=== PATIENT | male | born 1980 | race African-American/Black ===

== ENCOUNTER 2018-07-12 07:21 | Emergency (ER) | payer OTHER ==
[~2018-07-12] VITALS: Ht 188 cm; Wt 103.2 kg
[2018-07-12] MEDS ORDERED: LISI40TA PO (07:27)
[2018-07-12] MEDS: IPRATROPIUM 0.5MG/ALBUTEROL 2.5MG INH SOL UD 3ML (DUONEB)(J7620) NEB ONE (08:05)
[2018-07-12 08:23] LABS: INFLUENZA A AMPLIFICATION NEGATIVE (NEGATIVE); INFLUENZA B AMPLIFICATION NEGATIVE (NEGATIVE)
[2018-07-12] MEDS ORDERED: PROAAER10 INH (08:29)
[2018-07-12] MEDS ORDERED: ALL10TAB2 PO (08:29)
[2018-07-12] MEDS ORDERED: MAGICMW SSP (08:29)
[2018-07-12 08:36] VITALS: BP 130/69
--- NOTE | 2018-07-12 10:40 | REP ---
PA and lateral chest: There are no comparisons. The lung virk are clear. The cardiac size is normal. The kia, mediastinum, and skeletal structures are unremarkable. Impression: Negative PA and lateral chest. Electronically Signed by Zeus Stone MD 07/12/2018 10:31 A
== END 2018-07-12 08:38 | disposition home or self-care (01) ==
LOC: M ED 07:21
DX: J06.9 Acute upper respiratory infection, unspecified (principal); I10 Essential (primary) hypertension; Z79.899 Other long term (current) drug therapy

== ENCOUNTER 2019-10-16 10:25 | Emergency (ER) | payer OTHER ==
[~2019-10-16] VITALS: Ht 182.9 cm; Wt 112.8 kg
[~2019-10-16 10:25] MED LIST: ALL10TAB2 PO; LISI40TA PO; MAGICMW SSP; PROAAER10 INH
[2019-10-16 10:26] VITALS: BP 153/82
[2019-10-16] MEDS ORDERED: LOSA50TA88 PO (10:35)
--- NOTE | 2019-10-16 12:41 | REP ---
REASON: Pain after trauma. PRIORS: None. Mild tricompartmental marginal osteophytosis is present. There is no fracture, dislocation or subluxation. IMPRESSION: Early degenerative changes. Electronically Signed by Nelson Little DO 10/16/2019 02:20 P
--- NOTE | 2019-10-16 13:55 | REP ---
CT BRAIN WITHOUT CONTRAST: CT brain performed without IV contrast. Coronal reconstruction images are performed. Ventricles are normal in size and position with no midline shift or mass effect. Carrasco-white differentiation is well maintained. There is no acute intracranial extra-axial fluid collection. Bone window examination demonstrates no skull fracture. The visualized paranasal sinuses are clear. IMPRESSION: Negative noncontrast CT brain. Electronically Signed by Zeus Carrasco MD 10/19/2019 11:41 P
--- NOTE | 2019-10-16 14:10 | REP ---
CT CERVICAL SPINE: CT cervical spine performed in the axial plain. Sagittal and coronal reconstruction images are performed. There is no compression fracture or malalignment. There is no prevertebral soft tissue swelling. Tiny spur is seen anteriorly of C4, C5, and C6. Disc spaces appear well preserved. No abnormal density is seen in the spinal canal. IMPRESSION: No acute fracture or dislocation. Electronically Signed by Zeus Carrasco MD 10/19/2019 11:41 P
== END 2019-10-16 13:08 | disposition home or self-care (01) ==
LOC: M ED 10:25
DX: S16.1XXA Strain of muscle, fascia and tendon at neck level, initial encounter (principal); S80.02XA Contusion of left knee, initial encounter; V43.52XA Car driver injured in collision with other type car in traffic accident, initial encounter; Y92.9 Unspecified place or not applicable; Y93.9 Activity, unspecified; Y99.9 Unspecified external cause status